=== PATIENT | male | born 1960 | race Caucasian/White ===

== ENCOUNTER 2017-01-07 16:20 | Emergency (ER) | payer OTHER | END 2017-01-07 16:35 | disposition home or self-care (01) | LOC: ER1 16:20 | DX: S68.111A Complete traumatic metacarpophalangeal amputation of left index finger, initial encounter (principal); I25.2 Old myocardial infarction; W22.8XXA Striking against or struck by other objects, initial encounter; Y93.89 Activity, other specified; Y92.69 Other specified industrial and construction area as the place of occurrence of the external cause; Y99.0 Civilian activity done for income or pay; Z88.0 Allergy status to penicillin; Z79.82 Long term (current) use of aspirin; Z79.02 Long term (current) use of antithrombotics/antiplatelets | CPT/HCPCS: 73140; 96372; 99283; J0690 ==

== ENCOUNTER 2020-10-24 18:23 | Emergency (ER) | payer OTHER | END 2020-10-24 19:33 | disposition home or self-care (01) | LOC: ER1 18:23 | DX: S50.01XA Contusion of right elbow, initial encounter (principal); I25.10 Atherosclerotic heart disease of native coronary artery without angina pectoris; Z88.0 Allergy status to penicillin; V49.40XA Driver injured in collision with unspecified motor vehicles in traffic accident, initial encounter; Y92.410 Unspecified street and highway as the place of occurrence of the external cause | CPT/HCPCS: 73080; 73090; 99283 ==

== ENCOUNTER → 2020-12-04 | Outpatient (CLI) | payer OTHER | LOC: KOH-I 10:07 | DX: M25.521 Pain in right elbow (principal); M79.601 Pain in right arm; S46.291A Other injury of muscle, fascia and tendon of other parts of biceps, right arm, initial encounter | CPT/HCPCS: 73218; 73221 ==

== ENCOUNTER → 2021-01-21 | Outpatient (CLI) | payer OTHER | LOC: HEART 5 07:41 → ECHO 09:00 | DX: I25.10 Atherosclerotic heart disease of native coronary artery without angina pectoris (principal); R00.1 Bradycardia, unspecified; I08.1 Rheumatic disorders of both mitral and tricuspid valves; R94.39 Abnormal result of other cardiovascular function study | CPT/HCPCS: 78452; 93306; A9502; J2785 ==

== ENCOUNTER → 2021-02-15 | Outpatient (CLI) | payer OTHER | LOC: EXRD 12:43 → HEART 5 14:00 | DX: I73.9 Peripheral vascular disease, unspecified (principal) | CPT/HCPCS: 93922; 93925 ==